=== PATIENT | male | born 1975 | race Caucasian/White ===

== ENCOUNTER 2018-07-20 10:01 | Emergency (ER) | payer OTHER ==
[~2018-07-20] VITALS: Ht 188 cm; Wt 122.7 kg
[2018-07-20] MEDS ORDERED: KETOROLAC TROMETHAMINE 60 MG/2 ML VIAL IM ONE (13:30)
[2018-07-20 13:40] VITALS: BP 122/73
== END 2018-07-20 14:19 | disposition home or self-care (01) ==
LOC: EMS 12:03
DX: S39.012A Strain of muscle, fascia and tendon of lower back, initial encounter (principal); E78.00 Pure hypercholesterolemia, unspecified; I10 Essential (primary) hypertension; X58.XXXA Exposure to other specified factors, initial encounter; Y93.89 Activity, other specified; Y92.89 Other specified places as the place of occurrence of the external cause; Y99.8 Other external cause status
CPT/HCPCS: 93971; 96372; 99284; J1885